=== PATIENT | female | born 2005 | race Caucasian/White ===

== ENCOUNTER → 2023-09-05 | Outpatient (CLI) | payer BC | END | disposition home or self-care (01) | LOC: LABWHC1 08:09 | PROVIDERS: ATTEND Otolaryngology | DX: J30.89 Other allergic rhinitis (principal) | CPT/HCPCS: 36415 ==

== ENCOUNTER → 2023-12-27 | Outpatient (CLI) | payer BC ==
[2023-12-28 01:02] LABS: Egg White IgE <0.10 kU/L; Peanut IgE <0.10 kU/L; Shrimp IgE <0.10 kU/L; Soybean IgE <0.10 kU/L
[2023-12-28 13:49] LABS: Avocado Class CLASS 1; Banana IgE Class CLASS 2; Gluten IgE Class CLASS 0; Hazelnut IgE >100.00 kU/L (<0.10); Hazelnut IgE Class CLASS 6; Kiwi IgE 0.84 kU/L (<0.10); Kiwi IgE Class CLASS 2; Latex IgE Class CLASS 0; Oat IgE Class CLASS 1; Potato IgE 0.12 kU/L (<0.10); Potato IgE Class CLASS 0/1
== END | disposition home or self-care (01) ==
LOC: LABWHC1 14:30
PROVIDERS: ATTEND Otolaryngology
DX: L50.0 Allergic urticaria (principal); J30.89 Other allergic rhinitis; B44.89 Other forms of aspergillosis
CPT/HCPCS: 36415; 86003